=== PATIENT | female | born 1950 | race African-American/Black ===

== ENCOUNTER → 2017-03-02 | Outpatient (CLI) | payer OTHER ==
--- NOTE | ~2017-03-02 | CT98 ---
[facility] A Service of [facility] & [facility] RADIOLOGY TEXT RESULTS PATIENT: SEVERINO MCMAHON LOCATION: [facility] : 54 UNIT #: [id number] AGE: [address]: Rafat Bonilla MD SEX: F ORDER DR: [id number] [facility] [address] [place], [place] [address] [id number] O MR#: [id number] Acc #: [id number] NAME: SEVERINO MCMAHON : 1950 SEX: F STUDY DATE/TIME: 03/02/2017 12:13 UNIT: [facility] ROOM: STUDY DESCRIPTION: CT Lumbar Spine Wo Cont Attending Physician: Rafat Bonilla M.D. Referring Physician: Rafat Bonilla M.D. Ordering Physician: Rafat Bonilla M.D. Primary Care Physician: Yuriy Seth M.D. MEDICAL IMAGING REPORT This report is preliminary unless electronic signature is present EXAM CT of the lumbar spine without contrast dated 03/02/2017. COMPARISON CT lumbar spine without contrast dated 02/04/2012 HISTORY Pain radiating from the lower back to the left leg since 2011. [employer] for [address] exam was performed with one or more of the following radiation dose reduction techniques: automatic control, adjustment of mA and/or kV according to patient size, and iterative reconstruction. FINDINGS CT of the lumbar spine was obtained without contrast in the axial plane followed by sagittal and coronal reformats. Vertebral body heights and alignment are preserved. There is a less than 5 mm sclerotic focus in the L3 vertebral body, probably an incidental bone island based on statistics, stable in the last 5 years. Intervertebral disc heights are preserved. Degenerative changes are noted at multiple facet joints. Pre and paravertebral soft tissues do not demonstrate any significant abnormality. T11-12: Unremarkable. T12-L1: Unremarkable. L1-2: Mild disc bulge with mild inferior left neural foraminal encroachment. Rqtyilww-do-tfmckz left and mild to moderate right facet hypertrophic change. No canal stenosis. L2-3: Mild disc bulge which is slightly prominent in the left foraminal STS. [facility] A Service of [facility] & [facility] RADIOLOGY TEXT RESULTS PATIENT: SEVERINO MCMAHON [id number] 54 UNIT #: [id number] AGE: [address]: Rafat Bonilla MD SEX: F ORDER DR: to extraforaminal region with mild inferior left neural foraminal narrowing. No canal stenosis. Moderate bilateral facet hypertrophic changes. L3-4: Concentric disc bulge with mild inferior bilateral neural foraminal narrowing. Mild canal stenosis. Very severe bilateral facet hypertrophic change. L4-5: Concentric disc bulge with oxfjuxuc-sk-jxhifv right and moderate left facet hypertrophic change. No canal stenosis. Mild inferior bilateral neural foraminal encroachment. L5-S1: Disc osteophyte complex with severe right and mild left facet hypertrophic change. No canal stenosis. IMPRESSION 1. Degenerative changes are noted at multiple levels, relatively worse at L3-4 with mild canal stenosis and mild inferior bilateral neural foraminal narrowing. 2. Facet hypertrophic changes are noted at multiple levels, severe in bilateral L3-4, right L4-5 and probably right L5-S1. Dictated by... Hal Posey M.D. THIS IS AN ELECTRONICALLY VERIFIED REPORT Hal Posey M.D. at 03/06/2017 7:54 PM CPR/rnr TD: 03/04/2017 01:42 JOB #: [id number] MEDICAL IMAGING REPORT Page 1 of 1 COPY
== END | disposition home or self-care (01) ==
LOC: CCAT 11:19
DX: M51.36 Other intervertebral disc degeneration, lumbar region (principal); M48.06 Spinal stenosis, lumbar region; M47.896 Other spondylosis, lumbar region; M99.83 Other biomechanical lesions of lumbar region
CPT/HCPCS: 72131